=== PATIENT | female | born 1975 | race Asian ===

== ENCOUNTER 2016-09-13 18:10 | Emergency (ER) | payer OTHER ==
[2016-09-13 18:19] VITALS: BP 120/72; PULSE 88; TEMP 98.2; BMI 25.7
[2016-09-13] MEDS ORDERED: IBUPROFEN 400 MG TABLET (FP) PO ONE ×2 (19:03→19:12)
--- NOTE | 2016-09-13 19:10 | PDOC ---
History of Present Illness - General Chief Complaint: Headache Stated Complaint: HEADACHE Time Seen by Provider: 09/13/16 18:36 History Source: Patient - History of Present Illness Timing/Duration: reports: other Past History - Past Medical History Allergies/Adverse Reactions: Allergies Allergy/AdvReac Type Severity Reaction Status Date / Time No Known Allergies Allergy Verified 09/13/16 18:19 Other medical history: DENIES - Surgical History Abdominal Surgery: Yes - Psycho/Social/Smoking Cessation Hx Suicidal Ideation: No Smoking History: Never smoked Information on smoking cessation initiated: No Review of Systems - Review of Systems Constitutional: Yes: Malaise. No: Chills, Fever ABD/GI: Yes: Diarrhea, Nausea, Vomiting. No: Blood Streaked Bowels Neurological: Yes: Headache *Physical Exam - Vital Signs Last Vital Signs Temp Pulse Resp BP Pulse Ox 98.2 F 88 18 120/72 99 09/13/16 18:15 09/13/16 18:15 09/13/16 18:15 09/13/16 18:15 09/13/16 18:15 - Physical Exam General Appearance: Yes: Appropriately Dressed. No: Apparent Distress HEENT: positive: Normal Voice Neck: positive: Supple Respiratory/Chest: positive: Lungs Clear, Normal Breath Sounds. negative: Respiratory Distress Cardiovascular: positive: Regular Rate, S1, S2 Gastrointestinal/Abdominal: positive: Soft. negative: Tender Integumentary: positive: Dry, Warm Neurologic: positive: Fully Oriented, Alert, Normal Mood/Affect Medical Decision Making - Medical Decision Making 09/13/16 19:04 41-year-old female, denies any past medical history, here with nausea, vomiting and diarrhea for 3 days that has since improved. Denies abdominal pain, hematochezia, fever or chills. Able to ximena po. No unusual food, sick contacts, recent travel or antibiotic use. Now complaining of body aches including headache. Patient well-appearing and in no apparent distress with unremarkable exam. Most likely viral. DC with supportive treatment. *DC/Admit/Observation/Transfer Diagnosis at time of Disposition: Viral syndrome - Discharge Dispostion Disposition: HOME Condition at time of disposition: Stable - Patient Instructions Printed Discharge Instructions: Viral Gastroenteritis Additional Instructions: Maintain adequate hydration, for the remainder of your symptoms, maintain a bland diet such as bananas, rice, applesauce and toast. These foods can help make your stools firmer and also replete certainly essential electrolytes. Please follow up with your primary care physician as needed - Post Discharge Activity Work/School Note: Back to Work
== END 2016-09-13 19:40 | disposition home or self-care (01) ==
LOC: JERFT 18:10
DX: A08.4 Viral intestinal infection, unspecified (principal); B97.89 Other viral agents as the cause of diseases classified elsewhere
CPT/HCPCS: 99281-25

== ENCOUNTER 2016-11-24 18:29 | Emergency (ER) | payer OTHER ==
[2016-11-24 18:54] VITALS: BP 148/89; PULSE 86; TEMP 98.5; BMI 25.7
--- NOTE | 2016-11-24 18:55 | PDOC ---
Rapid Medical Evaluation Chief Complaint: Cold Symptoms Time Seen by Provider: 11/24/16 18:52 Medical Evaluation: Allergies Allergy/AdvReac Type Severity Reaction Status Date / Time No Known Allergies Allergy Verified 09/13/16 18:19 11/24/16 18:53 I have performed a brief in-person evaluation of this patient. The patient presents with a chief complaint of: left ear pain x 2 weeks, moist cough/ no fevers/ Px with sinuses- using nasal flonase Pertinent physical exam findings: well, no wheezing I have ordered the following: none The patient will proceed to the ED for further evaluation.
--- NOTE | 2016-11-24 19:25 | PDOC ---
History of Present Illness - General Chief Complaint: Cold Symptoms Stated Complaint: COLD SYMPTOMS Time Seen by Provider: 11/24/16 18:52 History Source: Patient Exam Limitations: No Limitations - History of Present Illness Initial Comments: 11/24/16 19:25 CHIEF COMPLAINT: Ear pain HISTORY OF PRESENT ILLNESS: This is a 41 year old female with a history of chronic sinusitis who presents with worsening sinus pain and left ear pain since last night. She uses Flonase regularly without relief. She denies fevers, generalized headache, and neck pain. Vital signs are unremarkable. No PCP, has seen Dr. Morales for ENT in the past. REVIEW OF SYSTEMS: GENERAL/CONSTITUTIONAL: No fever or chills. No weakness. No weight change. HEAD, EYES, EARS, NOSE AND THROAT: See HPI. CARDIOVASCULAR: No chest pain or palpitations. RESPIRATORY: No cough, wheezing, or shortness of breath. GASTROINTESTINAL: No nausea, vomiting, diarrhea or constipation. GENITOURINARY: No dysuria, frequency, or change in urination. MUSCULOSKELETAL: No joint or muscle swelling or pain. No neck or back pain. SKIN: No rash or easy bruising. NEUROLOGIC: No headache, vertigo, loss of consciousness, or loss of sensation. PSYCHIATRIC: No depression or anxiety. ENDOCRINE: No increased thirst. No abnormal weight change. HEMATOLOGIC/LYMPHATIC: No anemia, easy bleeding, or history of blood clots. ALLERGIC/IMMUNOLOGIC: No hives or skin allergy. No latex allergy. PHYSICAL EXAM: GENERAL: The patient is awake, alert, and fully oriented, in no acute distress. HEAD: Normal with no signs of trauma. ENT: +Mild maxillary sinus tenderness, +++ left ethmoid sinus tenderness. TMs normal. Pupils equal, round and reactive to light, extraocular movements intact , sclera anicteric, conjunctiva clear. Neck supple. LUNGS: Clear to auscultation bilaterally. Normal excursion. No respiratory distress or use of accessory muscles. CV: RRR, S1/S2, no MRG. Cap refill < 2 sec. ABDOMEN: Soft, non-distended, non-tender. EXTREMITIES: Normal range of motion, no edema. NEUROLOGICAL: Normal speech, normal gait. CN II-XII grossly intact. PSYCH: Normal mood, normal affect. SKIN: Warm, dry, normal turgor, no rashes or lesions noted. Past History - Past Medical History Allergies/Adverse Reactions: Allergies Allergy/AdvReac Type Severity Reaction Status Date / Time shellfish derived Allergy Itching Verified 11/24/16 18:54 Home Medications: Ambulatory Orders Amoxicillin/Potassium Clav [Augmentin 875-125 Tablet] 1 each PO BID #14 tablet 11/24/16 NK [No Known Home Medication] 11/24/16 Pseudoephedrine HCl [Sudafed 12 Hour] 120 mg PO BID #14 tablet.er 11/24/16 Other medical history: NONE - Surgical History Abdominal Surgery: Yes - Psycho/Social/Smoking Cessation Hx Suicidal Ideation: No Smoking History: Never smoked Hx Alcohol Use: Yes (SOCIAL) Drug/Substance Use Hx: No Substance Use Type: None *Physical Exam - Vital Signs Last Vital Signs Temp Pulse Resp BP Pulse Ox 98.5 F 86 20 148/89 100 11/24/16 18:51 11/24/16 18:51 11/24/16 18:51 11/24/16 18:51 11/24/16 18:51 Medical Decision Making - Medical Decision Making 11/24/16 19:47 A/P: 41 year old female with likely [id number] sinusitis. -Augmentin -Sudafed -Continue Flonase -Followup instructions and return precautions reviewed *DC/Admit/Observation/Transfer Diagnosis at time of Disposition: Sinusitis chronic, ethmoidal, Ear pain, left - Discharge Dispostion Disposition: HOME Condition at time of disposition: Stable Admit: No - Prescriptions Prescriptions: Amoxicillin/Potassium Clav [Augmentin 875-125 Tablet] 1 each PO BID #14 tablet Pseudoephedrine HCl [Sudafed 12 Hour] 120 mg PO BID #14 tablet.er - Referrals Referrals: Tera Gallagher MD [Staff Physician] - 1 week (Primary care) - Patient Instructions Printed Discharge Instructions: DI for Sinusitis Additional Instructions: -Take Augmentin and Sudafed as prescribed -Continue Flonase -Follow up with Dr. Morales or primary care (referral enclosed) -Return here for worsening pain, fever, or any other concerning symptoms - Post Discharge Activity Work/School Note: Back to Work
[2016-11-24] MEDS ORDERED: AMOX TR/POT CLAV 875MG/125MG TABLETS (FP) PO ONE (19:38)
[2016-11-24] MEDS ORDERED: PSEUDOEPHEDRINE HCL 60 MG TABLET PO ONE (19:39)
[2016-11-24] MEDS ORDERED: AMOX TR/POT CLAV 875MG/125MG TABLETS (FP) ONE (19:44)
== END 2016-11-24 19:51 | disposition home or self-care (01) ==
LOC: JERFT 18:29
DX: J01.20 Acute ethmoidal sinusitis, unspecified (principal); H92.02 Otalgia, left ear
CPT/HCPCS: 84703; 99281-25

== ENCOUNTER 2017-10-12 15:35 | Emergency (ER) | payer OTHER ==
--- NOTE | 2017-10-12 15:41 | PDOC ---
Rapid Medical Evaluation Chief Complaint: Back Pain Time Seen by Provider: 10/12/17 15:39 Medical Evaluation: Allergies Allergy/AdvReac Type Severity Reaction Status Date / Time shellfish derived Allergy Itching Verified 11/24/16 18:54 10/12/17 15:39 I have performed a brief in-person evaluation of this patient. 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 10/12/17 15:42 Discharge Disposition - Diagnosis Low back pain - Referrals - Patient Instructions - Post Discharge Activity
[2017-10-12 15:47] VITALS: BP 145/85; PULSE 89; TEMP 99.7; BMI 22.3
[2017-10-12] MEDS ORDERED: KETOROLAC TROMETHAMINE 60 MG/2 ML VIAL IM ONE (17:31)
[2017-10-12] MEDS ORDERED: diazePAM 5 MG TABLET PO ONE (17:31)
[2017-10-12] MEDS ORDERED: KETOROLAC TROMETHAMINE 60 MG/2 ML VIAL ONE (17:34)
[2017-10-12] MEDS ORDERED: diazePAM 5 MG TABLET ONE (17:34)
--- NOTE | 2017-10-12 17:41 | PDOC ---
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 pt states pain continues and feels stiff. neg abd pain neg fever neg urianry complaints. pt took 400mg motrin at 12 noon . pt has history of back problems in the past. Occurred: reports: this morning Severity: reports: mild Pain Location: reports: back Method of Injury: Yes: other (bent over at the waist ) Past History - Past Medical History Allergies/Adverse Reactions: Allergies Allergy/AdvReac Type Severity Reaction Status Date / Time shellfish derived Allergy Itching Verified 11/24/16 18:54 Home Medications: Ambulatory Orders NK [No Known Home Medication] 11/24/16 - Surgical History Abdominal Surgery: Yes - Suicide/Smoking/Psychosocial Hx Smoking History: Never smoked Information on smoking cessation initiated: No Hx Alcohol Use: No Drug/Substance Use Hx: No Substance Use Type: None *Physical Exam - Vital Signs Last Vital Signs Temp Pulse Resp BP Pulse Ox 99.7 F H 89 20 145/85 99 10/12/17 15:44 10/12/17 15:44 10/12/17 15:44 10/12/17 15:44 10/12/17 15:44 - Physical Exam General Appearance: Yes: Nourished, Appropriately Dressed HEENT: positive: EOMI, MARLYN, Normal ENT Inspection, TMs Normal, Pharynx Normal Neck: positive: Supple. negative: Tender Respiratory/Chest: positive: Lungs Clear, Normal Breath Sounds. negative: Chest Tender Cardiovascular: positive: Regular Rhythm, Regular Rate Gastrointestinal/Abdominal: positive: Normal Bowel Sounds, Soft. negative: Tender Rectal Exam: negative: heme negative stool Musculoskeletal: positive: Normal Inspection, Muscle Spasm (lumbar parapsinal soft tissue left side , neg vetebral tenderness , neg rash). 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 neg urinary complaints neg saddle anesthesia neg urine or bowel dysfunction neg abd pain neg weakness or numbness in legs 10/12/17 17:43 10/12/17 17:43 *DC/Admit/Observation/Transfer Diagnosis at time of Disposition: Low back pain Qualifiers: Chronicity: acute Back pain laterality: bilateral Sciatica presence: without sciatica Qualified Code(s): M54.5 - Low back pain - Discharge Dispostion Disposition: HOME Condition at time of disposition: Good - Referrals Referrals: Anant Rose MD [Staff Physician] - Cameron Young MD [Staff Physician] - - Patient Instructions Additional Instructions: follow with the orthopedist for follow up next week follow with Dr. Young for follow up primary care if you need please avoid heavy lifting or bending take flexeril for muscle spasm take naprosyn for pain as needed return to ER for any worsening symptoms apply ice to lower back for 20 minutes and then apply warm compresses , repeat this every few hours you can also get a topical over the counter Icy Hot back patch or rubbing cream - Post Discharge Activity Forms/Work/School Notes: Back to Work
== END 2017-10-12 17:44 | disposition home or self-care (01) ==
LOC: JERFT 15:35
PROC: 3E0233Z Introduction of Anti-inflammatory into Muscle, Percutaneous Approach (ICD-10-PCS; principal; 2017-10-12)
DX: M54.5 Low back pain (principal); X50.1XXA Overexertion from prolonged static or awkward postures, initial encounter; Y93.89 Activity, other specified; Y92.238 Other place in hospital as the place of occurrence of the external cause; Y99.0 Civilian activity done for income or pay
CPT/HCPCS: 99281-25